=== PATIENT | female | born 1965 | race Caucasian/White ===

== ENCOUNTER 2016-09-13 03:17 | Inpatient (IN) | payer MEDICARE ==
--- NOTE | ~2016-09-13 | DS ---
Discharge Summary [facility] [address] [place]. [address] NAME: APMELA MARTINEZ : 65 STATUS : DIS IN PAT#: [id number] AGE: 51 ADM/REG DATE : 09/13/16 MR#: [id number] REPORT SERV DATE: 09/24/16 DICTATED BY: CORBIN YOUNG DATE: 09/23/16 REPORT STATUS : Draft TRANSCRIBED BY: MODCindy DATE: 09/23/16 ADMISSION DATE: 09/13/2016 DISCHARGE DATE: 09/23/2016 DISCHARGE DIAGNOSES: 1. Acute kidney injury. This is necessitating temporary hemodialysis, most likely causes included hypoxic injury, AIMEE inhibitor therapy, chronic anti-inflammatory drug use in the outpatient setting, IV Toradol administered in the emergency room, and IV contrast to rule out pulmonary emboli in the emergency room. Chronic kidney disease. 2. Respiratory distress with acute pulmonary edema associated with acute kidney injury. 3. 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 4. Bilateral pleural effusions, most likely due to renal failure. 5. Acute exacerbation of chronic obstructive pulmonary disease. 6. Chest pain with known coronary artery disease, previous left anterior descending artery and right coronary artery stenting, Cardiology signed off and no further intervention at this time. 7. Systemic hypertension, currently stable. 8. Obesity. 9. 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 10.Cirrhosis by CT imaging. 11.Nonobstructing renal stones. 12.Chronic pain syndrome with acute exacerbation related to present illness. 13.Acute anemia, currently stable. 14.Abdominal pain with a history of gastroesophageal reflux and peptic ulcer disease, currently stable. 15.Insulin resistance with prediabetes. 16.Positive Hemoccult stool, unknown status of bleeding. 17.Monoclonal IgG lambda gammopathy. Escherichia coli urinary tract infection, completed therapy. Encephalopathy, currently resolved. 18.Schizoaffective disorder with catatonia. 19.Bilateral renal cysts. 20.Right kidney hyperdense lesion, ultrasound followup needed. OPERATIONS AND PROCEDURES: Right IJ PermCath on 09/17/2016 hemodialysis and removal of the right IJ PermCath on 09/23/2016. CONSULTANTS: 1. Manuel Serrano M.D. of Vascular Surgery. 2. Gene Mcgrath M.D. of Psychiatry. 3. Lukas Whitaker M.D. of Nephrology. BRIEF HISTORY OF PRESENT ILLNESS: The patient is a 51-year-old female who was triaged in the emergency room on 09/13/2016, complained of shortness of breath with some significantly abnormal vital signs, an evaluation showed bilateral pleural effusions, so she was admitted. For detailed history and physical exam, please see note dictated by Dr. Sadi Alexander on Discharge Summary [address] [address] NAME: PAMELA MARTINEZ : 65 STATUS : DIS IN PAT#: [id number] AGE: 51 ADM/REG DATE : 09/13/16 MR#: [id number] REPORT SERV DATE: 09/24/16 DICTATED BY: CORBIN YOUNG DATE: 09/23/16 REPORT STATUS : Draft TRANSCRIBED BY: MATTHEW DATE: 09/23/16 09/13/2016. HOSPITAL COURSE: After being admitted to the hospital, this patient was seen by Dr. Mendenhall. Please refer to interim summary, discharge summary dictated by Dr. Mendenhall on 09/21/2016. I took over this patient's care on 09/21/2016. This patient was still remaining unresponsive, not talking, having mutism, and a catatonic state. Dr. Mcgrath continued to see the patient. After adjusting medications and placing her on Abilify, this patient was able to convert back to her normal. Within 24 hours, she started talking. She was tolerating a diet. She required some physical therapy and assistance and she was debilitated, so it was decided that she would go to a halfway facility for further rehab and evaluation management. Nephrology continued to see the patient. Her kidney function returned back to baseline and continue to improve, so her PermCath was discontinued and hemodialysis has been discontinued. Today, this patient feels well. She said she feels like she is ready for rehab. She still remains on about 2 liters of nasal cannula O2, which could be weaned off once the patient becomes more mobile. She still has some swelling, but at this time no diuretic therapy will be initiated unless the patient continues to have further fluid retention issues. However, with diuretic therapy, her kidney function should be monitored very closely. All consultants have signed off her care, and otherwise, she remained stable and is being discharged in stable condition. DISCHARGE DISPOSITION: To skilled. DISCHARGE ACTIVITY: Per facility. DISCHARGE DIET: Low-sodium, 1800-calorie [employer] diet. DISCHARGE MEDICATIONS: Aspirin 162 mg once daily, Abilify 10 mg once daily, vitamin C 250 mg once daily, Lipitor 40 mg once daily, Coreg 3.125 mg twice daily, vitamin B12 1000 mcg once daily, vitamin D 400 units once daily, lorazepam 0.5 mg once at bedtime, Protonix 40 mg before breakfast and supper, and vitamin E 400 mg once daily. DISCHARGE FOLLOWUP: With primary care physician post rehab. More than 35 minutes spent planning this patient's discharge, reconciling medications, discussing care and arranging discharge as well as documenting this discharge. DANISHA/MATTHEW Corbin Young M.D. / [id number] CC: Corbin Young M.D.
--- NOTE | ~2016-09-13 | OP ---
Record Of Operation [facility] [address] [place]. [address] NAME: PAMELA MARTINEZ : 65 STATUS : ADM IN [facility]#: [id number] AGE: 51 ADM/REG DATE : 09/13/16 MR#: [id number] REPORT SERV DATE: 09/23/16 DICTATED BY: MANUEL SERRANO DATE: 09/23/16 REPORT STATUS : Draft TRANSCRIBED BY: MODL DATE: 09/23/16 DATE OF PROCEDURE: 09/23/2016 PREOPERATIVE DIAGNOSIS: Acute kidney injury. POSTOPERATIVE DIAGNOSIS: Acute kidney injury. PROCEDURE: Removal of a right IJ PermCath. SURGEON: Manuel Serrano M.D. FURNITURE DETAILER: None. ANESTHESIA: None. INDICATIONS: The patient is a 51-year-old female, who developed acute kidney injury. It was thought that she would need intermediate term dialysis access, so I placed a PermCath. Now, her renal function has improved. Thus, she was consented for intervention. DESCRIPTION OF PROCEDURE: The patient's right chest was prepped and draped in the usual sterile fashion. Sutures were removed. I removed the PermCath. I used manual pressure for hemostasis. The patient tolerated the procedure well without any intraprocedural complications noted. LEA/MATTHEW Manuel Serrano M.D. / [id number] CC: Harris Gorman M.D.
--- NOTE | ~2016-09-13 | CN ---
Consultation Report [facility] [address] [place]. [address] NAME: PAMELA MARTINEZ : 65 STATUS : ADM IN PAT#: [id number] AGE: 51 ADM/REG DATE : 09/13/16 MR#: [id number] REPORT SERV DATE: 09/20/16 DICTATED BY: GENE FRIEDMAN DATE: 09/20/16 REPORT STATUS : Draft TRANSCRIBED BY: MODL DATE: 09/20/16 PSYCHIATRIC CONSULTATION DATE OF CONSULTATION: 09/20/2016 I reviewed this patient's medical record. I discussed her status with her nurse. I discussed her history with her and her sister, who were visiting. HISTORY OF PRESENT ILLNESS: She was admitted with congestive heart failure and apparent exacerbation of COPD. Since she started hemodialysis for acute kidney injury about three days ago, she has become less and less communicative and sometimes, she has been totally mute. PAST PSYCHIATRIC HISTORY: Her sister reported that the patient had her first "breakdown" when she was in her 20s. At that time, she had a psychiatric hospitalization at some place in [place]. She was diagnosed with "schizophrenia." At that time, she was experiencing auditory hallucinations of a command type. The voices told her to kill her and her son. After that hospitalization, she did not follow up with outpatient psychiatric care as was recommended. Her next "breakdown" was in 2002 or 2003 when she was a patient at [facility]. She was referred to [facility] and stayed there for a number of days. At that time, she was again hearing voices. On this occasion, the voices were urging her to kill herself. After that hospitalization, she did not follow up with recommended outpatient psychiatric care. SOCIAL HISTORY: She is in her second marriage for the past 14 years. She has one son from her first marriage. She has grandchildren. FAMILY HISTORY: Her mother had major psychiatric issues. Her brother was diagnosed with bipolar disorder. Her sister suffers from a significant depression. MENTAL STATUS: She was lying on her right side. She appeared to be in a light sleep or perhaps she was feigning sleep. She did not arouse, and she did not open her eyes when I greeted her and gently rocked her. She remained mute and did not answer any of my questions. DIAGNOSIS: Probable schizoaffective disorder with catatonic withdrawal. RECOMMENDATIONS: I will start her on Ativan 1 mg p.o. q.8 hours and Abilify 5 mg p.o. b.i.d. I will follow. DK/MODL Gene Consultation Report [address] [facility] [address] NAME: PAMELA MARTINEZ : 65 STATUS : ADM IN PAT#: [id number] AGE: 51 ADM/REG DATE : 09/13/16 MR#: [id number] REPORT SERV DATE: 09/20/16 DICTATED BY: GENE FRIEDMAN DATE: 09/20/16 REPORT STATUS : Draft TRANSCRIBED BY: MODL DATE: 09/20/16 Harris Friedman / [id number] CC: Doug Mendenhall M.D.
--- NOTE | ~2016-09-13 | HP ---
History And Physical [id number] [place]. [address] NAME: PAMELA MARTINEZ : 65 STATUS : ADM IN [facility]#: [id number] AGE: 51 ADM/REG DATE : 09/13/16 MR#: [id number] REPORT SERV DATE: 09/13/16 DICTATED BY: BOB MORGAN DATE: 09/13/16 REPORT STATUS : Draft TRANSCRIBED BY: MODL DATE: 09/13/16 DATE OF ADMISSION: 09/13/2016 PCP: None. HISTORY OF PRESENT ILLNESS: This is a 51-year-old female, who comes in for shortness of breath. The patient has a history of COPD diagnosed around 2006, CAD with history of myocardial infarction and stents placed in 2013. Has not been following up with her market intelligence consultant or any kind of a doctor. She is only taking aspirin and has chronic shortness of breath. However, for the last three days, it has been getting worse and finally she could not take it any more, went to our emergency room. In the ER, the patient was diagnosed with both COPD and CHF exacerbation, and we were called to admit this patient. The patient admits to having on and off swelling, but it is better now. She denies any chest pain, admits to having some nausea but no vomiting. She denies any urinary or bowel changes. She has an on and off sweats, but no actual fever or chills. She denies any near syncopal or syncopal episode. No urinary or bowel changes. REVIEW OF SYSTEMS: Rest of the 14-point review of systems is negative except as above. PAST MEDICAL HISTORY: Includes the above. She was told that she had CHF in the past, hypertension. She said that she had a cholecystectomy, , splenectomy for a bleeding problem which has resolved when they got the spleen out, removal of an ovarian cyst, history of hepatitis B, and she mentioned 26 surgeries for kidney stones. ALLERGIES: SHE IS ALLERGIC TO SULFA AND PHENERGAN. MEDICATIONS: Include aspirin and multivitamins. FAMILY HISTORY: Brother had bleeding problems, CVA. Multiple family members with diabetes, hypertension, and CAD. SOCIAL HISTORY: The patient used to smoke half a pack a day for more than 10 years, quit five years ago. Used to drink wine coolers, now does not drink any alcohol. No recreational drug use. PHYSICAL EXAMINATION: GENERAL: The patient is obese, alert, oriented x3, in mild cardiorespiratory distress. VITAL SIGNS: Include a temperature of 97.1, pulse rate of 77, respiratory rate of 14, blood pressure of 178/108, saturating 92% on room air. NECK: She has supple neck. No JVD or carotid bruits. No lymphadenopathy. HEENT: [place] conjunctivae. Anicteric sclerae. No pharyngeal erythema. LUNGS: She has fair air entry. Wheezes all over. Some decreased breath sounds, but I could not appreciate any crackles. CARDIAC: Regular rate and rhythm to tachycardia. No murmurs appreciated. ABDOMEN: Positive bowel sounds. Soft, nontender. No masses. History And Physical [address] [address] NAME: PAMELA MARTINEZ : 65 STATUS : ADM IN [facility]#: [id number] AGE: 51 ADM/REG DATE : 09/13/16 MR#: [id number] REPORT SERV DATE: 09/13/16 DICTATED BY: BOB MORGAN DATE: 09/13/16 REPORT STATUS : Draft TRANSCRIBED BY: MATTHEW DATE: 09/13/16 EXTREMITIES: Fair pulses. Trace edema. NEURO: Exam is nonlocalizing. EKG shows sinus tachycardia at 106, normal axis. I did not see any ST-T wave changes. Laboratories reveal a BUN and creatinine of 32 and 1.26. Troponin of 0.05. The rest of the chemistry and CBC is within acceptable limits. Chest x-ray shows venous congestion with bibasilar atelectasis, small bilateral pleural fluid. CAT scan of the chest shows CAD, no PE, right and left pleural effusions, congestive heart failure changes. ASSESSMENT: 1. Congestive heart failure exacerbation with bilateral pleural effusions. 2. Coronary artery disease with history of stents x2. 3. Possible chronic obstructive pulmonary disease exacerbation. 4. Hypertension. 5. Obesity. PLAN: The patient seems to have CAD, COPD, and history of ND. However, old records in [facility] revealed a CT showing no significant blockage in 2002. She probably would have some by now and according to her that she had some stents which were also seen on the CAT scan without any regular doctor follow up. She would need workup for both heart and lung diagnoses. With her elevated BNP and pleural effusion, this is likely a CHF exacerbation. Admit to telemetry. Check an echo. Diurese her. Monitor troponin. Place on oxygen and AIMEE inhibitor and later on a beta redd. We will place her on bronchodilators as well. We will check cholesterol profile and once her acute problem is resolved, she might need an outpatient stress unless she is having a heart attack right now which is not evident at this time. This has been explained to her and she agreed and understood the plan. MISAEL/MATTHEW Bob Morgan M.D. / [id number] CC: Bob Morgan M.D.
--- NOTE | ~2016-09-13 | CN ---
Consultation Report [facility] [address] [place]. [address] NAME: PAMELA MARTINEZ : 65 STATUS : ADM IN PAT#: [id number] AGE: 51 ADM/REG DATE : 09/13/16 MR#: [id number] REPORT SERV DATE: 09/15/16 DICTATED BY: HENNY JAIN DATE: 09/15/16 REPORT STATUS : Draft TRANSCRIBED BY: MODL DATE: 09/15/16 CONSULTATION DATE OF CONSULTATION: 09/15/2016 TIME: 12:35 p.m. REASON FOR CONSULTATION: Acute kidney injury. ASSESSMENT: Acute kidney injury. Multiple factors including ATN related to initial hypoxic injury on presentation, addition of AIMEE inhibitor in the above settings, chronic anti- inflammatory drug use as an outpatient, but in addition got IV Toradol in the ER, and also got radio IV contrast in the ER to rule out pulmonary embolism. As a result, she has had significant declining kidney function. Her baseline creatinine was 0.98 in 05/2016; 1.26 in 2017; 1.95 yesterday; and now 3.11. She is currently nonoliguric. PLAN: 1. Stop all nephrotoxic medications. 2. To check an echo to assess LV function. 3. Ultrasound of the liver has shown her to have LAM. 4. Agree with Dr. Mendenhall to give half to a liter of IV fluids to see if any change. Check urinalysis to see if she has any concentrating ability. Her urinalysis done on 09/13/2016 and shows no proteinuria at that time. History is obtained from the records available and the patient and her . She is a pleasant 51-year-old female with morbid obesity, who presented here to the ER with what appeared to be increasing shortness of breath and the above workup was undertaken. The CT angiogram was negative for pulmonary embolism. She had bilateral pleural effusions, thought to have been congestive heart failure and was attempted to diurese her and also placed on AIMEE inhibition immediately in the ER. She also has a strong history of kidney stones bilaterally and followed by urologist in [place], [place] and states she has had multiple kidney stones removed in the past. No hematuria at this point. No flank pain described and no difficulty in voiding but she did have increasing lower limb edema prior to admission. PAST MEDICAL HISTORY: Includes the above 1. Coronary artery stenting in the past. 2. History of splenectomy for a bleeding problem. 3. History of hepatitis B. Multiple surgeries for kidney stones. ALLERGIES: SHE IS ALLERGIC TO A SULFA DRUG AND PHENERGAN. MEDICATIONS: Multivitamins and aspirin. FAMILY HISTORY: Positive for bleeding disorder. Multiple family members with diabetes, hypertension. Consultation Report [address] [place]. [address] NAME: PAMELA MARTINEZ : 65 STATUS : ADM IN PAT#: [id number] AGE: 51 ADM/REG DATE : 09/13/16 MR#: [id number] REPORT SERV DATE: 09/15/16 DICTATED BY: HENNY JAIN DATE: 09/15/16 REPORT STATUS : Draft TRANSCRIBED BY: MATTHEW DATE: 09/15/16 SOCIAL HISTORY: The patient quit smoking 5 years ago. No alcohol or medication or street drug usage. PHYSICAL EXAMINATION: GENERAL: Lying prone, in no acute distress. She is morbidly obese. VITAL SIGNS: Blood pressure is 107/53, heart rate is in the 70s afebrile. HEENT: She is pale but no jaundice. Oral mucosa is moist. No pharyngitis. NECK: Supple. No thyromegaly. Trachea is central. LUNGS: Air entry is equal bilaterally. Bilateral basilar crackles are noted. HEART: S1, S2. No rub. [place] beat is not displaced. ABDOMEN: Mild distention. No hepatosplenomegaly. No tenderness or rebound. Bowel sounds normal. EXTREMITIES: She has no peripheral edema. NEUROLOGIC: She is awake, alert, and oriented to time, place, and person. [place] not depressed. Cranial nerves are intact. Normal skin turgor. No rash reported. No acute arthritic findings noted. Muscle bulk and tone appropriate for age. LAB DATA: Her workup today includes a CT angiogram that showed normal pulmonary vasculature. Sodium 143, potassium 4.7, chloride 111, CO2 of 21, BUN 75, creatinine 3.11, mag 1.9, and phosphorus 6.9. Hemoglobin is 10.1, hematocrit 31.8, white count 7.2, and platelet count is 211,000. Urinalysis shows no proteinuria. MG/MODL Henny Jain M.D. / [id number] CC: Doug Mendenhall M.D.
--- NOTE | ~2016-09-13 | OP ---
Record Of Operation [facility] [address] [place]. [address] NAME: PAMELA MARTINEZ : 65 STATUS : ADM IN PAT#: [id number] AGE: 51 ADM/REG DATE : 09/13/16 MR#: [id number] REPORT SERV DATE: 09/20/16 DICTATED BY: MANUEL SERRANO DATE: 09/19/16 REPORT STATUS : Draft TRANSCRIBED BY: MATTHEW DATE: 09/19/16 DATE OF PROCEDURE: 09/17/2016 PREOPERATIVE DIAGNOSIS: Acute kidney injury. POSTOPERATIVE DIAGNOSIS: Acute kidney injury. PROCEDURE: Right IJ PermCath. SURGEON: Manuel Serrano M.D. BENZENE WORKER: None. ANESTHESIA: MAC plus local. INDICATIONS: The patient is a 51-year-old female, who has acute kidney injury. Dr. Jain asked that I place a PermCath in her for dialysis. Risks, benefits, and alternatives were discussed. She wished to proceed. DESCRIPTION OF PROCEDURE: After informed consent was obtained, the patient was taken to the operating room and placed in the supine position on the operating table. Monitored anesthesia was administered. The patient's right neck and chest were prepped and draped in the usual sterile fashion. Ultrasound-guided access was obtained of the right internal jugular vein. The ultrasound image was documented on the chart. I passed a wire centrally. I made a small skin incision along the right neck and chest. I tunneled a 19-cm curved HemoSplit catheter from the right chest to the right neck. I then inserted a peel-away sheath over the aforementioned wire using fluoroscopic guidance. I subsequently inserted the catheter into the peel-away sheath under fluoroscopy and peeled away the sheath. I confirmed that the catheter was not kinked and that it aspirated and flushed well. The right neck wound was closed. The catheter was sutured in place, and a sterile dressing was applied. The patient tolerated the procedure well without any intraprocedural complications noted. LEA/MATTHEW Manuel Serrano M.D. / [id number] CC: Harris Hoang M.D.
--- NOTE | ~2016-09-13 | PRECARD ---
H&P [facility] [address] [facility] [place] [address] NAME: MICAELA MARTINEZ : 65 STATUS : ADM IN [facility]#: [id number] AGE: 51 ADM/REG DATE : 09/13/16 MR#: [id number] REPORT SERV DATE: 09/14/16 DICTATED BY: TIERRA JACQUES DATE: 09/14/16 REPORT STATUS : Draft TRANSCRIBED BY: MATTHEW DATE: 09/14/16 DATE OF ADMISSION: 09/13/2016 HISTORY OF PRESENT ILLNESS: Ms. Micaela Martinez is a 51-year-old woman referred by Dr. Mendenhall, Hospitalist Service, with dyspnea and elevated BNP. Ms. Martinez reports having catheterization with stents placed on three different occasions. The most recent stent placement was in 2013 in [place], [place]. She has stents in both, the LAD and the right coronary artery. She presents with increasing dyspnea for several days duration. On repeated questioning, she absolutely denies chest discomfort. Her echocardiogram demonstrates an ejection fraction of about 45%. Her troponins have been normal, less than 0.02. The BNP is elevated at 732. Her chest x-ray has demonstrated bilateral pleural effusions. She did have a creatinine of 1.26. She received contrast, AIMEE inhibitors. The creatinine increased to 1.9. She now describes some dyspnea on exertion. She has had no orthopnea or PND. Again, no chest discomfort. She has had no palpitations. PAST MEDICAL HISTORY: 1. COPD. 2. Prior tobacco use, quit about five years ago. 3. Hypertension. 4. Obesity. HOME MEDICATIONS: Vitamin C, aspirin, vitamin B12, enoxaparin, furosemide, influenza, lisinopril, vitamin E. SOCIAL HISTORY: Denies current tobacco use, quit about five years ago. Denies alcohol. REVIEW OF SYSTEMS: A complete review of systems obtained and pretty unremarkable except as noted above and below. All systems addressed. PHYSICAL EXAMINATION: Bp: About 100/55, heart rate: 75. GENERAL: She appears chronically ill, comfortable, supine in the bed, without dyspnea. HEENT: No xanthelasma; lips without cyanosis. LUNGS: Clear to auscultation, no wheezes, rales or rhonchi; good breath sounds. COR: No JVD or hepatojugular reflux, no murmurs, rubs or gallops, impulse mid clavicular line without carotid or abdominal bruits; normal S1 and S2. ABDOMEN: Bowel sounds positive, normal activity, without tenderness, masses or hepatosplenomegaly. EXTREMITIES: Have mild edema. H&P [address] [address] NAME: MICAELA MARTINEZ : 65 STATUS : ADM IN PAT#: [id number] AGE: 51 ADM/REG DATE : 09/13/16 MR#: [id number] REPORT SERV DATE: 09/14/16 DICTATED BY: TIERRA JACQUES DATE: 09/14/16 REPORT STATUS : Draft TRANSCRIBED BY: MATTHEW DATE: 09/14/16 SKIN: Normal turgor. Ms: Normal muscle strength, without kyphosis/scoliosis. NEURO/PSYCH: Alert and oriented times 4, no apparent anxiety or depression. LABORATORY DATA: BUN is 51, creatinine 1.9. Troponin less than 0.02. BNP was 731 on 09/13/2016. EKG, sinus rhythm with anterior infarct pattern. Echocardiogram: Ejection fraction of 45%-50%, mild diastolic dysfunction, a small area of apical hypokinesia with trivial AI. ASSESSMENT: Ms. Martinez is a 51-year-old woman with COPD, known coronary artery disease, with ejection fraction of 45% to 50%. Her creatinine has increased from 1.2 to 1.95. She has had no chest pain on repeated questioning. Her troponins have been normal, less than 0.02. PLAN: I am reluctant to proceed with diuresis now given her climbing creatinine, worsening renal function. She has relatively preserved LVEF, with no orthopnea or PND now. At this time, I think the best plan is to hold diuretics and AIMEE inhibitor. We would subsequently reinstitute diuretics once her renal function improves. Also, we will need to assess her perfusion status with either a stress test or a cardiac catheterization, once the renal function stabilizes. WILFRED/MATTHEW Tierra Jacques M.D. / [id number] CC: Doug Mendenhall M.D.
--- NOTE | ~2016-09-13 | DS ---
Discharge Summary [facility] [address] [place]. [address] NAME: PAMELA MARTINEZ : 65 STATUS : ADM IN [facility]#: [id number] AGE: 51 ADM/REG DATE : 09/13/16 MR#: [id number] REPORT SERV DATE: 09/21/16 DICTATED BY: SANTOS MOTA DATE: 09/20/16 REPORT STATUS : Draft TRANSCRIBED BY: MODL DATE: 09/20/16 ADMISSION DATE: 09/13/2016 DISCHARGE DATE: 09/20/2016 INTERIM SUMMARY DATE: 09/20/2016. CURRENT DIAGNOSES: 1. Acute kidney injury necessitating temporary hemodialysis. Acute kidney injury thought to be related to hypoxic injury, AIMEE inhibitor therapy, chronic anti-inflammatory drug use as outpatient, IV Toradol administered in the ER, and IV contrast to rule out pulmonary embolus in ER. 2. Chronic kidney disease. 3. Respiratory distress with acute pulmonary edema associated with acute kidney injury. 4. Urrdz-yb-lnmhrsg combined congestive heart failure with echocardiography demonstrating mildly decreased left ventricular systolic function with estimated EF of 45%-50% with mild diastolic dysfunction in addition to small area of apical hypokinesis. 5. Bilateral pleural effusions. 6. Acute exacerbation of chronic obstructive pulmonary disease. 7. Chest pain with known coronary artery disease and previous LAD and RCA stenting. Cardiology decision pending on further ischemia evaluation with improvement in renal function. 8. Systemic hypertension. 9. Obesity. 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 11.Cirrhosis by CT abdomen imaging. 12.Nonobstructing renal stones. 13.Chronic pain syndrome with acute exacerbation related to present illness. 14.Acute anemia. 15.Abdominal pain with history of gastroesophageal reflux disease and peptic ulcer disease. 16.Prediabetes. 17.Occult GI bleeding with positive stool Hemoccult. 18.Monoclonal IgG lambda gammopathy. 19.Escherichia coli urinary tract infection. 20.Encephalopathy. 21.Probable schizoaffective disorder with catatonic withdrawal. 22.Nonobstructing right nephrolithiasis. 23.Bilateral renal cysts. 24.Right kidney hyperdense lesion, ultrasound followup needed. OPERATIONS AND PROCEDURES: Right IJ PermCath on 09/17/2016 and hemodialysis on 09/17/2016. PRESENT ILLNESS: This is a 51-year-old white female who was triaged in the emergency room on 09/13/2016 at 0213 hours complaining of shortness of breath. Her admission vital signs were blood pressure 170/108, temp 97.1, pulse 77, respirations 40, and O2 saturation 92%. Discharge Summary [address] [address] NAME: PAMELA MARTINEZ : 65 STATUS : ADM IN [facility]#: [id number] AGE: 51 ADM/REG DATE : 09/13/16 MR#: [id number] REPORT SERV DATE: 09/21/16 DICTATED BY: SANTOS MOTA DATE: 09/20/16 REPORT STATUS : Draft TRANSCRIBED BY: MATTHEW DATE: 09/20/16 Her evaluation in the emergency room included a CTA chest that did not show pulmonary emboli, but did demonstrate coronary artery disease and bilateral pleural effusions. In the emergency room, she was given Solu-Medrol, nitroglycerin paste, Bumex, Zofran, and Toradol. She was referred to the Hospitalist Service for admission. She was seen by Dr. Sadi Alexander and admitted as described on admission history and physical examination. ADDITIONAL HISTORY: Per Dr. Alexander. PHYSICAL EXAMINATION: Per Dr. Alexander. ADMISSION LABORATORY: Per Dr. Alexander. HOSPITAL COURSE: She was admitted by Dr. Alexander with assessment: 1. Congestive heart failure exacerbation with bilateral pleural effusions. 2. Coronary artery disease with history of stenting x2. 3. Possible chronic obstructive pulmonary disease exacerbation. 4. Hypertension. 5. Obesity. She was admitted to [address] [place] [address]. She was placed on O2. AIMEE inhibitor therapy was initiated. She was given bronchodilators and diuretic therapy. Cardiology consultation was obtained. She was seen by the undersigned on 09/14/2016. She was seen by Cardiology initially by Dr. Jacques. She had some chest pain in the setting of known coronary artery disease. It was thought to be somewhat atypical. Troponin values were 0.05, 0.04, and less than 0.02 on admission. Consideration of cardiac catheterization was considered, but deferred because of rising creatinine. MPI imaging is still a consideration pending overall improvement in her status to be described below. With the above described therapy initiated on admission, her creatinine which was 1.26 increased to 4.89 on 09/17/2016. Nephrology consultation had been obtained on 09/15/2016. She was seen by Dr. Jain. Considerations for acute kidney injury are as noted above. With her rising creatinine and worsening fluid retention, the above-mentioned procedures were done on the 09/17/2016. Post dialysis, she developed an encephalopathic picture. She did not develop any acute focal abnormalities, but her overall status dictated an aggressive evaluation. A stat CT brain was done on 09/18/2016, which did not demonstrate any acute abnormality. A limited CT brain was done on 09/19/2016 which did not show any acute abnormality. On 09/19/2016, siblings arrived who told me of a history of schizophrenia and psychiatric hospitalization. Psychiatric consultation was obtained with Dr. Gene Mcgrath on Discharge Summary [address] [address] NAME: PAMELA MARTINEZ : 65 STATUS : ADM IN [facility]#: [id number] AGE: 51 ADM/REG DATE : 09/13/16 MR#: [id number] REPORT SERV DATE: 09/21/16 DICTATED BY: SANTOS MOTA DATE: 09/20/16 REPORT STATUS : Draft TRANSCRIBED BY: MATTHEW DATE: 09/20/16 09/20/2016. His impression was probable schizoaffective disorder with catatonic withdrawal. He suggested Ativan every eight hours and Abilify twice daily. On 09/19/2016, she developed respiratory distress. She had anasarca. A chest x-ray showed pulmonary edema. Her IV fluids were adjusted. She was given Bumex and Zaroxolyn with a brisk diuresis and improvement in her respiratory status. Gratefully, her creatinine also improved to 1.59 today and no further dialysis is planned. She has an Escherichia coli urinary tract infection under treatment, it is thought to be symptomatic. She has a history of hepatitis B. A hepatitis profile and HIV are all nonreactive. She does have evidence for cirrhosis on abdominal CT imaging with mild lobulation of the liver surface. Full code. Her bilirubin has been normal. Alkaline phosphatase has been elevated in the 200s. ALT has been normal, and AST has been mildly elevated at 49, 77, and 91. A serum ammonia is borderline at 36. Her hemoglobin was 12.1 on admission, and with the above-mentioned illness and procedures, it is 10 today. She had a normal folate of 11.9 on 09/13/2016 and an elevated B12 of 3920. A TSH and free T4 are pending. She has had one positive stool for occult blood. Endoscopic evaluation is being deferred at this time given her other acute problems and comorbidities. Additional evaluation of her CKD by Nephrology has included a urine protein electrophoresis that shows no monoclonal protein. However, a serum protein electrophoresis suggested a faint restriction and a serum immunofixation shows a monoclonal IgG lambda. This will require further followup. In addition, renal imaging was done with a non-contrasted CT. She has bilateral renal cysts. She has some abnormal hyperdense lesions which will be further evaluated with ultrasound imaging when her medical status allows. She also has nonobstructing right nephrolithiasis and an atrophic left kidney. Hospitalist care to be assumed by [address] on 09/21/2016. DD/MATTHEW Santos Mota M.D. / [id number] CC: Santos Mota M.D.
[2016-09-13 03:08] LABS: BASOPHILS ABSOLUTE 0.07 10/3/uL (0.0-0.16); EOSINOPHILS 2.5 %; EOSINOPHILS ABSOLUTE 0.17 10/3/uL (0.0-0.53); ER CBC TAT 0 Hrs 16 Mins; HEMATOCRIT 36.6 % (36.0-48.0); HEMOGLOBIN 12.1 g/dL (12.0-16.0); IMMATURE GRANULOCYTES 1.8 %; IMMATURE GRANULOCYTES ABSOLUTE 0.12 10/3/uL (0.0-0.11); INTERNATIONAL NORMAL RATI 0.9 UNITS (-); LYMPHOCYTES ABSOLUTE 1.76 10/3/uL (0.67-4.30); MANUAL DIFF NO %; MEAN CORPUS HGB CONC 33.1 g/dL (32.0-36.0); MEAN CORPUSCULAR HEMOGLOB 33.8 pg (26.0-34.0); MEAN CORPUSCULAR VOLUME 102.2 fL (80-100); MEAN PLATELET VOLUME 12.1 fL (9.2-13.0); MONOCYTES 14.8 %; NEUTROPHILS 53.9 %; NEUTROPHILS ABSOLUTE 3.65 10/3/uL (2.02-8.40); NUCLEATED RED BLOOD CELLS 5.4 /100WBC (0-0); PARTIAL THROMBO TIME 26.9 SEC (22.5-37.2); PLATELET COUNT 213 10/3/uL (150-400); PROTIME (NOT ORD) 12.4 SEC (12.0-14.5); RBC DISTRIBUTION WIDTH 17.3 % (12.0-16.0); RED CELL COUNT 3.58 10/6/uL (4.0-5.6); WHITE BLOOD CELLS 6.8 10/3/uL (4.5-10.5)
[2016-09-13 03:19] LABS: BUN (BLOOD UREA NITROGEN) 32 MG/DL (6-23); CALCIUM, SERUM 8.9 MG/DL (8.5-10.4); CHEST PAIN PROFILE TAT 0 Hrs 27 Mins; CHLORIDE, SERUM 115 MMOL/L (96-112); CO2 (CARBON DIOXIDE) 22 MMOL/L (24-34); CREATININE 1.26 MG/DL (0.55-1.02); GFR AFRICAN AMERICAN 57 ML/MIN (>=60); GFR NON AFRICAN AMERICAN 49 ML/MIN (>=60); GLUCOSE, SERUM 113 MG/DL (60-99); POTASSIUM, SERUM 4.2 MMOL/L (3.5-5.3); SODIUM, SERUM 147 MMOL/L (135-148); TROPONIN I 0.05 NG/ML (<0.05)
[2016-09-13 03:26] LABS: ANISOCYTOSIS 1+ (5-10/OIF) (0-5/OIF)
[2016-09-13 03:31] LABS: TARGET CELLS OCC (1-2/OIF) (0-1/OIF)
[2016-09-13 03:32] LABS: MACROCYTES 1+ (5-10/OIF) (0-5/OIF); PLATELET ESTIMATE ADQ (ADEQUATE)
[2016-09-13] MEDS ORDERED: ADVIL PO (07:48)
[2016-09-13] MEDS ORDERED: HALF81 PO (07:48)
[2016-09-13] MEDS ORDERED: VITAMIN C PO (07:49)
[2016-09-13] MEDS ORDERED: VITAMIN B-12 PO (07:49)
[2016-09-13] MEDS ORDERED: VITAMIN D PO (07:49)
[2016-09-13] MEDS ORDERED: VITAMIN E PO (07:49)
[2016-09-13 12:44] LABS: ALLENS TEST Pos; BE (BASE EXCESS) -7.2 MEQ/L (0 +/- 2.5); DEVICE NC; HCO3 (ACTUAL BICARBONATE) 18.5 MEQ/L (23-27); HEMOBLOGIN CONTENT 13.7 G/DL (12-16); INSTRUMENT SERIAL # 35151; METHEMOGLOBIN 0.6 % (0-3); O2 CONTENT 18.4 VOL% (18-24); PCO2 (CO2 TENSION) 38 MMHG (35-45); PO2 (O2 TENSION) 87 MMHG (79-93); SAMPLE Arterial; pH 7.31 (7.37-7.43)
[2016-09-13 15:23] LABS: ALBUMIN 2.3 G/DL (3.5-5.0); DIRECT BILIRUBIN 0.5 MG/DL (0.0-0.4); INDIRECT BILIRUBIN(NOT ORDER) 0.1 MG/DL (0.1-0.9); TOTAL BILIRUBIN 0.6 MG/DL (0-1.2); TOTAL PROTEIN 6.8 G/DL (6.0-8.5); TROPONIN I 0.04 NG/ML (<0.05)
[2016-09-13 15:25] LABS: FOLATE 11.9 NG/ML (>5.2)
[2016-09-13 15:40] LABS: WBC (NOT ORDERED) (RFLEX) 0 (0-5)
[2016-09-13 16:26] LABS: ASCORBIC ACID (UR NOT ORDER) NEG (NEG); BILIRUBIN, URINE NEGATIVE (NEG); KETONE, URINE NEGATIVE (NEG); LEUKOCYTE ESTERASE(NOT OR NEG (NEG)
[2016-09-14 05:54] LABS: CALCIUM, SERUM 8.6 MG/DL (8.5-10.4); CHLORIDE, SERUM 112 MMOL/L (96-112); CO2 (CARBON DIOXIDE) 21 MMOL/L (24-34); GFR AFRICAN AMERICAN 34 ML/MIN (>=60); GFR NON AFRICAN AMERICAN 29 ML/MIN (>=60); GLUCOSE, SERUM 126 MG/DL (60-99); SODIUM, SERUM 143 MMOL/L (135-148); TROPONIN I <0.02 NG/ML (<0.05)
[2016-09-14 05:59] LABS: BUN (BLOOD UREA NITROGEN) 51 MG/DL (6-23); CREATININE 1.95 MG/DL (0.55-1.02); POTASSIUM, SERUM 5.2 MMOL/L (3.5-5.3)
[2016-09-14 15:18] LABS: T PROTEIN (ELECT)(NOT OR 6.6 G/DL (6.0-8.5)
[2016-09-15 06:53] LABS: BASOPHILS 0.1 %; BASOPHILS ABSOLUTE 0.01 10/3/uL (0.0-0.16); EOSINOPHILS 0.1 %; EOSINOPHILS ABSOLUTE 0.01 10/3/uL (0.0-0.53); HEMATOCRIT 31.8 % (36.0-48.0); HEMOGLOBIN 10.1 g/dL (12.0-16.0); IMMATURE GRANULOCYTES 2.8 %; LYMPHOCYTES 19.6 %; LYMPHOCYTES ABSOLUTE 1.42 10/3/uL (0.67-4.30); MEAN CORPUS HGB CONC 31.8 g/dL (32.0-36.0); MEAN CORPUSCULAR HEMOGLOB 33.6 pg (26.0-34.0); MEAN CORPUSCULAR VOLUME 105.6 fL (80-100); MEAN PLATELET VOLUME 12.6 fL (9.2-13.0); MONOCYTES 16.2 %; MONOCYTES ABSOLUTE 1.17 10/3/uL (0.21-1.20); NEUTROPHILS 61.2 %; NEUTROPHILS ABSOLUTE 4.43 10/3/uL (2.02-8.40); PLATELET COUNT 211 10/3/uL (150-400); RBC DISTRIBUTION WIDTH 18.3 % (12.0-16.0); RED CELL COUNT 3.01 10/6/uL (4.0-5.6); RETICULOCYTE COUNT 2.6 % (0.5-2.5); RETICULOCYTE COUNT ABSOLUTE 79.5 10/3/uL (20.2-119.8); WHITE BLOOD CELLS 7.2 10/3/uL (4.5-10.5)
[2016-09-15 06:54] LABS: MANUAL DIFF NO %
[2016-09-15 07:11] LABS: ALBUMIN 2.4 G/DL (3.5-5.0); CALCIUM, SERUM 8.3 MG/DL (8.5-10.4); CHLORIDE, SERUM 111 MMOL/L (96-112); CO2 (CARBON DIOXIDE) 21 MMOL/L (24-34); PHOSPHORUS, SERUM 6.9 MG/DL (2.5-4.5); POTASSIUM, SERUM 4.7 MMOL/L (3.5-5.3); SGOT(AST) 77 U/L (5-40); SGPT(ALT) 60 U/L (5-65); SODIUM, SERUM 143 MMOL/L (135-148); TOTAL BILIRUBIN 0.8 MG/DL (0-1.2); TOTAL PROTEIN 6.9 G/DL (6.0-8.5)
[2016-09-15 07:12] LABS: ALKALINE PHOSPHATASE 200 U/L (45-117); BUN (BLOOD UREA NITROGEN) 75 MG/DL (6-23); CREATININE 3.11 MG/DL (0.55-1.02); DIRECT BILIRUBIN 0.3 MG/DL (0.0-0.4); GFR AFRICAN AMERICAN 19 ML/MIN (>=60); GFR NON AFRICAN AMERICAN 17 ML/MIN (>=60); GLUCOSE, SERUM 75 MG/DL (60-99); INDIRECT BILIRUBIN(NOT ORDER) 0.5 MG/DL (0.1-0.9)
[2016-09-15 10:38] LABS: HEPATITIS B SURFACE ANTIGEN NON-REACTIVE (NON-REACT)
[2016-09-15 11:03] LABS: HEPATITIS C ANTIBODY NON-REACTIVE (NON-REACT)
[2016-09-15 11:04] LABS: HEPATITIS B CORE AB IGM NON-REACTIVE (NON-REAC)
[2016-09-15 11:05] LABS: HIV COMBO NON-REACTIVE (NON REAC)
[2016-09-15 11:06] LABS: HEP A ANTIBODY IGM NON-REACTIVE (NON-REACT)
[2016-09-15 12:02] LABS: A/G 0.73 RATIO (0.9-2.10); ALB RELATIVE % 42.2 % (60.0-89.0); ALBUMIN (ELECTRO) 2.79 GM/DL (3.2-5.5); ALPHA 1 (ELECTRO) 0.29 GM/DL (0.1-0.4); ALPHA 1 RELAT % (NOT ORD) 4.4 % (1.0-4.0); ALPHA 2 (ELECTRO) 0.87 GM/DL (0.5-1.10); ALPHA 2 RELAT % 13.2 % (4.5-26.0); BETA GLOBULIN (SPE) 0.93 GM/DL (0.60-1.30); BETA RELATIVE % 14.1 % (9.0-22.0); GAMMA GLOBULIN (SPE) 1.72 G/DL (0.70-1.60); GAMMA RELAT % 26.1 % (6.0-22.0)
[2016-09-15 17:23] LABS: TOTAL PROTEIN URINE 50.9 MG/DL
[2016-09-15 17:26] LABS: T.P. URINE (NOT ORDER RAN 51.3 MG/DL
[2016-09-15 18:06] LABS: CREAT SERUM (NOT ORDER) > 40.00 MG/DL (0.53-1.43)
[2016-09-15 18:09] LABS: # HR UR COLLECT (NOT ORD) 24; CREAT CLEAR (NOT ORDER) 0.8 ML/MIN (75-115); T.P.24HR UR (NOT ORDER) 205 MG/24HR (40-150); T.V. 24HR UR (NOT ORD) 400 ML (600-1600); URINE CREAT 0.53 G/T VOL (0.6-2.8); URINE TOTAL VOL (NOT ORD) 400 ML
[2016-09-15 19:04] LABS: ASCORBIC ACID (UR NOT ORDER) 20 (NEG); BILIRUBIN, URINE NEGATIVE (NEG); KETONE, URINE NEGATIVE (NEG); LEUKOCYTE ESTERASE(NOT OR LARGE (NEG); WBC (NOT ORDERED) (RFLEX) 62 (0-5)
[2016-09-16 05:30] LABS: ALBUMIN 2.3 G/DL (3.5-5.0); BUN (BLOOD UREA NITROGEN) 94 MG/DL (6-23); CALCIUM, SERUM 8.2 MG/DL (8.5-10.4); CHLORIDE, SERUM 110 MMOL/L (96-112); CO2 (CARBON DIOXIDE) 18 MMOL/L (24-34); CREATININE 4.15 MG/DL (0.55-1.02); GFR AFRICAN AMERICAN 14 ML/MIN (>=60); GFR NON AFRICAN AMERICAN 12 ML/MIN (>=60); GLUCOSE, SERUM 86 MG/DL (60-99); PHOSPHORUS, SERUM 6.3 MG/DL (2.5-4.5); POTASSIUM, SERUM 5.4 MMOL/L (3.5-5.3); SODIUM, SERUM 141 MMOL/L (135-148)
[2016-09-16 05:50] LABS: HEMATOCRIT 31.6 % (36.0-48.0); HEMOGLOBIN 10.3 g/dL (12.0-16.0); MEAN CORPUS HGB CONC 32.6 g/dL (32.0-36.0); MEAN CORPUSCULAR HEMOGLOB 34.4 pg (26.0-34.0); MEAN CORPUSCULAR VOLUME 105.7 fL (80-100); MEAN PLATELET VOLUME 12.4 fL (9.2-13.0); NUCLEATED RED BLOOD CELLS 2.6 /100WBC (0-0); PLATELET COUNT 201 10/3/uL (150-400); RBC DISTRIBUTION WIDTH 18.2 % (12.0-16.0); RED CELL COUNT 2.99 10/6/uL (4.0-5.6); WHITE BLOOD CELLS 7.6 10/3/uL (4.5-10.5)
[2016-09-16 06:03] LABS: MANUAL DIFF YES %
[2016-09-16 06:21] LABS: ANISOCYTOSIS 1+ (5-10/OIF) (0-5/OIF); BASOPHILS 2 %; BASOPHILS ABSOLUTE (CALC) 0.15 10/3/uL (0.0-0.16); EOSINOPHILS 2 %; EOSINOPHILS ABSOLUTE (CALC) 0.15 10/3/uL (0.0-0.53); LYMPHOCYTES 17 %; LYMPHOCYTES ABSOLUTE (CALC) 1.29 10/3/uL (0.67-4.30); MACROCYTES 1+ (5-10/OIF) (0-5/OIF); MONOCYTES 15 %; MONOCYTES ABSOLUTE (CALC) 1.14 10/3/uL (0.21-1.20); NEUTROPHILS ABSOLUTE (CALC) 4.86 10/3/uL (2.02-8.40); PLATELET ESTIMATE ADQ (ADEQUATE); POLYCHROMASIA 1+ (2-5/OIF) (0-1/OIF); SEGMENTED NEUTROPHIL (0) 64 %; TOTAL NUCLEATED CELLS 100
[2016-09-16 10:50] LABS: ALBUMIN RELAT % 26.9 %
[2016-09-16 14:22] LABS: T.V. 24HR UR 400 ML/24HR (600-1600)
[2016-09-17 06:09] LABS: PROTIME (NOT ORD) 13.5 SEC (12.0-14.5)
[2016-09-17 06:15] LABS: HEMOGLOBIN 9.8 g/dL (12.0-16.0); MEAN CORPUS HGB CONC 32.7 g/dL (32.0-36.0); MEAN CORPUSCULAR HEMOGLOB 34.1 pg (26.0-34.0); MEAN CORPUSCULAR VOLUME 104.5 fL (80-100); MEAN PLATELET VOLUME 12.4 fL (9.2-13.0); NUCLEATED RED BLOOD CELLS 2.2 /100WBC (0-0); PLATELET COUNT 188 10/3/uL (150-400); RBC DISTRIBUTION WIDTH 18.1 % (12.0-16.0); RED CELL COUNT 2.87 10/6/uL (4.0-5.6); WHITE BLOOD CELLS 8.3 10/3/uL (4.5-10.5)
[2016-09-17 06:17] LABS: MANUAL DIFF YES %
[2016-09-17 06:31] LABS: ALBUMIN 2.2 G/DL (3.5-5.0); CALCIUM, SERUM 7.3 MG/DL (8.5-10.4); CHLORIDE, SERUM 114 MMOL/L (96-112); CO2 (CARBON DIOXIDE) 17 MMOL/L (24-34); DIRECT BILIRUBIN 0.3 MG/DL (0.0-0.4); GLUCOSE, SERUM 84 MG/DL (60-99); INDIRECT BILIRUBIN(NOT ORDER) 0.1 MG/DL (0.1-0.9); PHOSPHORUS, SERUM 6.4 MG/DL (2.5-4.5); POTASSIUM, SERUM 5.8 MMOL/L (3.5-5.3); SGOT(AST) 49 U/L (5-40); SGPT(ALT) 53 U/L (5-65); SODIUM, SERUM 141 MMOL/L (135-148); TOTAL BILIRUBIN 0.4 MG/DL (0-1.2); TOTAL PROTEIN 6.4 G/DL (6.0-8.5)
[2016-09-17 06:32] LABS: BUN (BLOOD UREA NITROGEN) 107 MG/DL (6-23)
[2016-09-17 06:33] LABS: ALKALINE PHOSPHATASE 219 U/L (45-117); CREATININE 4.89 MG/DL (0.55-1.02); GFR AFRICAN AMERICAN 11 ML/MIN (>=60); GFR NON AFRICAN AMERICAN 10 ML/MIN (>=60)
[2016-09-17 06:36] LABS: EOSINOPHILS 2 %; EOSINOPHILS ABSOLUTE (CALC) 0.17 10/3/uL (0.0-0.53); LYMPHOCYTES 12 %; MACROCYTES 1+ (5-10/OIF) (0-5/OIF); MONOCYTES 11 %; MONOCYTES ABSOLUTE (CALC) 0.91 10/3/uL (0.21-1.20); NEUTROPHILS ABSOLUTE (CALC) 6.23 10/3/uL (2.02-8.40); REACTIVE LYMPHS OCC (0-2%) (0-5%); SEGMENTED NEUTROPHIL (0) 75 %; TOTAL NUCLEATED CELLS 100
[2016-09-17 06:37] LABS: PLATELET ESTIMATE ADQ (ADEQUATE)
[2016-09-18 05:44] LABS: HEMATOCRIT 29.9 % (36.0-48.0); HEMOGLOBIN 9.7 g/dL (12.0-16.0); MEAN CORPUS HGB CONC 32.4 g/dL (32.0-36.0); MEAN CORPUSCULAR HEMOGLOB 34.6 pg (26.0-34.0); MEAN CORPUSCULAR VOLUME 106.8 fL (80-100); MEAN PLATELET VOLUME 12.7 fL (9.2-13.0); NUCLEATED RED BLOOD CELLS 2.3 /100WBC (0-0); RBC DISTRIBUTION WIDTH 17.8 % (12.0-16.0); WHITE BLOOD CELLS 7.5 10/3/uL (4.5-10.5)
[2016-09-18 05:49] LABS: PLATELET COUNT 115 10/3/uL (150-400)
[2016-09-18 05:50] LABS: MANUAL DIFF YES %
[2016-09-18 06:38] LABS: ANISOCYTOSIS 1+ (5-10/OIF) (0-5/OIF); BAND NEUTROPHILS 2 %; EOSINOPHILS 1 %; EOSINOPHILS ABSOLUTE (CALC) 0.08 10/3/uL (0.0-0.53); IMMATURE GRANS ABSOLUTE (CALC) 0.15 10/3/uL (0.0-0.11); LYMPHOCYTES 11 %; LYMPHOCYTES ABSOLUTE (CALC) 0.83 10/3/uL (0.67-4.30); MACROCYTES 1+ (5-10/OIF) (0-5/OIF); METAMYELOCYTES 2 %; MONOCYTES 7 %; MONOCYTES ABSOLUTE (CALC) 0.53 10/3/uL (0.21-1.20); NEUTROPHILS ABSOLUTE (CALC) 5.93 10/3/uL (2.02-8.40); PLATELET ESTIMATE SLT DEC (ADEQUATE); SEGMENTED NEUTROPHIL (0) 77 %; TOTAL NUCLEATED CELLS 100
[2016-09-18 08:03] LABS: ALBUMIN 2.1 G/DL (3.5-5.0); CALCIUM, SERUM 7.7 MG/DL (8.5-10.4); CHLORIDE, SERUM 111 MMOL/L (96-112); GLUCOSE, SERUM 85 MG/DL (60-99); SODIUM, SERUM 141 MMOL/L (135-148)
[2016-09-18 08:04] LABS: CO2 (CARBON DIOXIDE) 21 MMOL/L (24-34); CREATININE 3.48 MG/DL (0.55-1.02); GFR AFRICAN AMERICAN 17 ML/MIN (>=60); GFR NON AFRICAN AMERICAN 14 ML/MIN (>=60)
[2016-09-18 08:10] LABS: BUN (BLOOD UREA NITROGEN) 72 MG/DL (6-23)
[2016-09-19 06:34] LABS: ALBUMIN 2.1 G/DL (3.5-5.0); CALCIUM, SERUM 7.7 MG/DL (8.5-10.4); CHLORIDE, SERUM 115 MMOL/L (96-112); CO2 (CARBON DIOXIDE) 19 MMOL/L (24-34); GFR AFRICAN AMERICAN 25 ML/MIN (>=60); GFR NON AFRICAN AMERICAN 22 ML/MIN (>=60); GLUCOSE, SERUM 86 MG/DL (60-99); PHOSPHORUS, SERUM 4.7 MG/DL (2.5-4.5); POTASSIUM, SERUM 5.3 MMOL/L (3.5-5.3); SODIUM, SERUM 144 MMOL/L (135-148)
[2016-09-19 06:35] LABS: BUN (BLOOD UREA NITROGEN) 79 MG/DL (6-23)
[2016-09-19 16:59] LABS: ALLENS TEST Pos; BE (BASE EXCESS) -7.8 MEQ/L (0 +/- 2.5); CARBOXYHEMOGLOBIN 0.9 % (0-3); HCO3 (ACTUAL BICARBONATE) 19.4 MEQ/L (23-27); HEMOBLOGIN CONTENT 11.5 G/DL (12-16); INSTRUMENT SERIAL # 8083; METHEMOGLOBIN 0.2 % (0-3); O2 CONTENT 15.3 VOL% (18-24); PCO2 (CO2 TENSION) 46 MMHG (35-45); PO2 (O2 TENSION) 82 MMHG (79-93); SAMPLE Arterial; pH 7.24 (7.37-7.43)
[2016-09-20 07:58] LABS: ALBUMIN 2.2 G/DL (3.5-5.0); CHLORIDE, SERUM 116 MMOL/L (96-112); CO2 (CARBON DIOXIDE) 21 MMOL/L (24-34); SODIUM, SERUM 148 MMOL/L (135-148)
[2016-09-20 08:01] LABS: BASOPHILS 0.4 %; BASOPHILS ABSOLUTE 0.04 10/3/uL (0.0-0.16); BUN (BLOOD UREA NITROGEN) 67 MG/DL (6-23); CREATININE 1.59 MG/DL (0.55-1.02); EOSINOPHILS 0.4 %; EOSINOPHILS ABSOLUTE 0.04 10/3/uL (0.0-0.53); GFR AFRICAN AMERICAN 43 ML/MIN (>=60); GFR NON AFRICAN AMERICAN 37 ML/MIN (>=60); GLUCOSE, SERUM 108 MG/DL (60-99); HEMATOCRIT 30.5 % (36.0-48.0); IMMATURE GRANULOCYTES 2.8 %; IMMATURE GRANULOCYTES ABSOLUTE 0.28 10/3/uL (0.0-0.11); LYMPHOCYTES 18.9 %; LYMPHOCYTES ABSOLUTE 1.89 10/3/uL (0.67-4.30); MEAN CORPUS HGB CONC 32.8 g/dL (32.0-36.0); MEAN CORPUSCULAR HEMOGLOB 34.8 pg (26.0-34.0); MEAN CORPUSCULAR VOLUME 106.3 fL (80-100); MEAN PLATELET VOLUME 12.4 fL (9.2-13.0); MONOCYTES 13.1 %; MONOCYTES ABSOLUTE 1.31 10/3/uL (0.21-1.20); NEUTROPHILS 64.4 %; NEUTROPHILS ABSOLUTE 6.43 10/3/uL (2.02-8.40); NUCLEATED RED BLOOD CELLS 1.5 /100WBC (0-0); PHOSPHORUS, SERUM 3.3 MG/DL (2.5-4.5); POTASSIUM, SERUM 4.6 MMOL/L (3.5-5.3); RED CELL COUNT 2.87 10/6/uL (4.0-5.6)
[2016-09-20 08:02] LABS: MANUAL DIFF NO %; PLATELET COUNT 194 10/3/uL (150-400)
[2016-09-20 10:35] LABS: HEPATITIS C ANTIBODY NON-REACTIVE (NON-REACT)
[2016-09-20 10:36] LABS: HEPATITIS B CORE AB IGM NON-REACTIVE (NON-REAC); HIV COMBO NON-REACTIVE (NON REAC)
[2016-09-20 12:01] LABS: HEPATITIS B SURFACE ANTIGEN NON-REACTIVE (NON-REACT)
[2016-09-20 12:30] LABS: HEP A ANTIBODY IGM NON-REACTIVE (NON-REACT)
[2016-09-20 18:46] LABS: FREE T4 1.07 NG/DL (0.76-1.46)
[2016-09-21 05:13] LABS: HEMATOCRIT 29.6 % (36.0-48.0); HEMOGLOBIN 9.7 g/dL (12.0-16.0); MEAN CORPUS HGB CONC 32.8 g/dL (32.0-36.0); MEAN CORPUSCULAR HEMOGLOB 34.9 pg (26.0-34.0); MEAN CORPUSCULAR VOLUME 106.5 fL (80-100); MEAN PLATELET VOLUME 12.3 fL (9.2-13.0); NUCLEATED RED BLOOD CELLS 1.6 /100WBC (0-0); PLATELET COUNT 199 10/3/uL (150-400); RBC DISTRIBUTION WIDTH 16.7 % (12.0-16.0); RED CELL COUNT 2.78 10/6/uL (4.0-5.6); WHITE BLOOD CELLS 10.7 10/3/uL (4.5-10.5)
[2016-09-21 05:15] LABS: MANUAL DIFF YES %
[2016-09-21 05:30] LABS: ALBUMIN 2.3 G/DL (3.5-5.0); CALCIUM, SERUM 8.8 MG/DL (8.5-10.4); CHLORIDE, SERUM 114 MMOL/L (96-112); CREATININE 1.41 MG/DL (0.55-1.02); GFR AFRICAN AMERICAN 50 ML/MIN (>=60); GFR NON AFRICAN AMERICAN 43 ML/MIN (>=60); PHOSPHORUS, SERUM 3.2 MG/DL (2.5-4.5); POTASSIUM, SERUM 4.3 MMOL/L (3.5-5.3); SODIUM, SERUM 150 MMOL/L (135-148)
[2016-09-21 05:31] LABS: BUN (BLOOD UREA NITROGEN) 61 MG/DL (6-23); CO2 (CARBON DIOXIDE) 27 MMOL/L (24-34); GLUCOSE, SERUM 84 MG/DL (60-99)
[2016-09-21 05:37] LABS: BAND NEUTROPHILS 6 %; EOSINOPHILS 1 %; EOSINOPHILS ABSOLUTE (CALC) 0.11 10/3/uL (0.0-0.53); HOWELL JOLLY BODIES 1+ (1-2/OIF); IMMATURE GRANS ABSOLUTE (CALC) 0.43 10/3/uL (0.0-0.11); LYMPHOCYTES 15 %; LYMPHOCYTES ABSOLUTE (CALC) 1.61 10/3/uL (0.67-4.30); METAMYELOCYTES 4 %; MONOCYTES 5 %; MONOCYTES ABSOLUTE (CALC) 0.54 10/3/uL (0.21-1.20); NEUTROPHILS ABSOLUTE (CALC) 8.03 10/3/uL (2.02-8.40); PLATELET ESTIMATE ADQ (ADEQUATE); SEGMENTED NEUTROPHIL (0) 69 %; TOTAL NUCLEATED CELLS 100
[2016-09-21 05:38] LABS: ANISOCYTOSIS 1+ (5-10/OIF) (0-5/OIF); GIANT PLATELET OCC; MACROCYTES 1+ (5-10/OIF) (0-5/OIF); STOMATOCYTES 1+ (3-10/OIF) (0-2/OIF)
[2016-09-22 05:39] LABS: HEMATOCRIT 27.4 % (36.0-48.0); HEMOGLOBIN 9.1 g/dL (12.0-16.0); MEAN CORPUS HGB CONC 33.2 g/dL (32.0-36.0); MEAN CORPUSCULAR HEMOGLOB 35.7 pg (26.0-34.0); MEAN CORPUSCULAR VOLUME 107.5 fL (80-100); MEAN PLATELET VOLUME 12.7 fL (9.2-13.0); NUCLEATED RED BLOOD CELLS 6.6 /100WBC (0-0); PLATELET COUNT 233 10/3/uL (150-400); RED CELL COUNT 2.55 10/6/uL (4.0-5.6); WHITE BLOOD CELLS 8.8 10/3/uL (4.5-10.5)
[2016-09-22 05:40] LABS: MANUAL DIFF YES %
[2016-09-22 06:07] LABS: BAND NEUTROPHILS 6 %; EOSINOPHILS 8 %; IMMATURE GRANS ABSOLUTE (CALC) 0.35 10/3/uL (0.0-0.11); LYMPHOCYTES 15 %; LYMPHOCYTES ABSOLUTE (CALC) 1.32 10/3/uL (0.67-4.30); METAMYELOCYTES 3 %; MONOCYTES 5 %; MONOCYTES ABSOLUTE (CALC) 0.44 10/3/uL (0.21-1.20); MYELOCYTES 1 %; NEUTROPHILS ABSOLUTE (CALC) 5.98 10/3/uL (2.02-8.40); SEGMENTED NEUTROPHIL (0) 62 %; TOTAL NUCLEATED CELLS 100
[2016-09-22 06:09] LABS: PLATELET ESTIMATE ADQ (ADEQUATE)
[2016-09-22 06:10] LABS: ANISOCYTOSIS 1+ (5-10/OIF) (0-5/OIF); HOWELL JOLLY BODIES OCC (0-1)
[2016-09-22 07:04] LABS: ALBUMIN 2.3 G/DL (3.5-5.0); CALCIUM, SERUM 9.1 MG/DL (8.5-10.4); CHLORIDE, SERUM 107 MMOL/L (96-112); CO2 (CARBON DIOXIDE) 30 MMOL/L (24-34); CREATININE 1.37 MG/DL (0.55-1.02); GFR AFRICAN AMERICAN 52 ML/MIN (>=60); GFR NON AFRICAN AMERICAN 45 ML/MIN (>=60); PHOSPHORUS, SERUM 3.2 MG/DL (2.5-4.5); POTASSIUM, SERUM 4.1 MMOL/L (3.5-5.3); SODIUM, SERUM 146 MMOL/L (135-148)
[2016-09-22 07:07] LABS: BUN (BLOOD UREA NITROGEN) 51 MG/DL (6-23); GLUCOSE, SERUM 108 MG/DL (60-99)
[2016-09-23 07:02] LABS: ALBUMIN 2.3 G/DL (3.5-5.0); CALCIUM, SERUM 9.2 MG/DL (8.5-10.4); CHLORIDE, SERUM 103 MMOL/L (96-112); CO2 (CARBON DIOXIDE) 29 MMOL/L (24-34); CREATININE 1.26 MG/DL (0.55-1.02); GFR AFRICAN AMERICAN 57 ML/MIN (>=60); GFR NON AFRICAN AMERICAN 49 ML/MIN (>=60); GLUCOSE, SERUM 105 MG/DL (60-99); PHOSPHORUS, SERUM 3.2 MG/DL (2.5-4.5); POTASSIUM, SERUM 3.7 MMOL/L (3.5-5.3); SODIUM, SERUM 141 MMOL/L (135-148)
[2016-09-23 07:03] LABS: BUN (BLOOD UREA NITROGEN) 41 MG/DL (6-23)
== END 2016-09-23 19:38 | DRG 682 ==
LOC: ER 03:17 → 6NO 08:05
PROVIDERS: Internal Medicine; Internal Medicine Cardiovascular Disease; Internal Medicine Nephrology; Specialist; Surgery
PROC: B543ZZA Ultrasonography of Right Jugular Veins, Guidance (ICD-10-PCS; 2016-09-17)
PROC: 5A1D60Z (ICD-10-PCS; 2016-09-17)
PROC: 05HM33Z Insertion of Infusion Device into Right Internal Jugular Vein, Percutaneous Approach (ICD-10-PCS; principal; 2016-09-17 13:00)
DX: N17.0 Acute kidney failure with tubular necrosis (principal); I50.43 Acute on chronic combined systolic (congestive) and diastolic (congestive) heart failure; J96.01 Acute respiratory failure with hypoxia; G93.40 Encephalopathy, unspecified; D47.2 Monoclonal gammopathy; J44.1 Chronic obstructive pulmonary disease with (acute) exacerbation; Z68.43 Body mass index [BMI] 50.0-59.9, adult; N39.0 Urinary tract infection, site not specified; I13.0 Hypertensive heart and chronic kidney disease with heart failure and stage 1 through stage 4 chronic kidney disease, or unspecified chronic kidney disease; B19.10 Unspecified viral hepatitis B without hepatic coma; Z23 Encounter for immunization; N28.1 Cyst of kidney, acquired; E87.5 Hyperkalemia; I25.10 Atherosclerotic heart disease of native coronary artery without angina pectoris; I25.2 Old myocardial infarction; K74.60 Unspecified cirrhosis of liver; G89.4 Chronic pain syndrome; E66.9 Obesity, unspecified; D64.9 Anemia, unspecified; T46.4X5A Adverse effect of angiotensin-converting-enzyme inhibitors, initial encounter; T39.395A Adverse effect of other nonsteroidal anti-inflammatory drugs [NSAID], initial encounter; N18.9 Chronic kidney disease, unspecified; N20.0 Calculus of kidney; B96.20 Unspecified Escherichia coli [E. coli] as the cause of diseases classified elsewhere; F25.9 Schizoaffective disorder, unspecified; F06.1 Catatonic disorder due to known physiological condition; R19.5 Other fecal abnormalities; R73.03 Prediabetes; R07.9 Chest pain, unspecified; Z87.891 Personal history of nicotine dependence; Z87.11 Personal history of peptic ulcer disease; Z90.81 Acquired absence of spleen; Z95.5 Presence of coronary angioplasty implant and graft; Z81.8 Family history of other mental and behavioral disorders
CPT/HCPCS: 36558; 36600; 70450; 70551-52; 71010; 71275; 74176; 76700; 77001; 80048; 80069; 80074; 80076; 81001; 82140; 82272; 82465; 82575; 82607; 82746; 82805; 83036; 83615; 83690; 83735; 83880; 84155; 84156; 84165; 84166; 84439; 84443; 84484; 85025; 85045; 85610; 85730; 86334; 87040; 87077; 87086; 87186; 87389; 90686; 93005; 94640; 96374; 96375; 97162-GP; 99285; A9270-GY; C1750; C8929; G0008; G0257; G8978-CK-GP; G8979-CJ-GP; J0690; J1170; J1885; J2250; J2370; J2405; J2920; J3010; Q9957; Q9967